=== PATIENT | female | born 1995 | race Caucasian/White ===

== ENCOUNTER 2016-08-06 17:48 | Emergency (ER) | payer OTHER ==
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
--- NOTE | 2016-08-06 18:22 | ED ORDER SUMMARY ---
..... Patient: BEAU MIMS OrderSheet [facility] VisitID: [id number] [place] [address] 21y, F Registration Date/Time: 08/06/2016 ORDER SHEET Weight: 116.5 kg (stated) Allergies: Zithromax GENERAL ORDERS: MEDICATION ORDERS: Tylenol PO 650 mg (NOW) (18:21 08/06/2016 EKoroleva P.A.-C) (18:29 LWhalmeng R.N.) Motrin PO 800 mg (NOW) (18:21 08/06/2016 EKoroleva P.A.-C) (18:29 LWhalmeng R.N.) IV FLUIDS: ORDER SHEET NOTES: [Electronically signed by Haydee Clark PBertA.-C (18:42 08/06/2016)] [Electronically signed by Tammy Marcus R.N. (19:25 08/07/2016)] [Electronically locked/signed by Tammy Marcus R.N. (19:25 08/07/2016)]
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
--- NOTE | 2016-08-06 18:22 | ED ORDER SUMMARY ---
..... Patient: BEAU MIMS OrderSheet [facility] VisitID: [id number] [place] [address] 21y, F Registration Date/Time: 08/06/2016 ORDER SHEET Weight: 116.5 kg (stated) Allergies: Zithromax GENERAL ORDERS: MEDICATION ORDERS: Tylenol PO 650 mg (NOW) (18:21 08/06/2016 EKoroleva P.A.-C) (18:29 LWhalmeng R.N.) Motrin PO 800 mg (NOW) (18:21 08/06/2016 EKoroleva P.A.-C) (18:29 LWhalmeng R.N.) IV FLUIDS: ORDER SHEET NOTES: [Electronically signed by Haydee Clark PBertA.-C (18:42 08/06/2016)] [Electronically signed by Tammy Marcus R.N. (19:25 08/07/2016)] [Electronically locked/signed by Tammy Marcus R.N. (19:25 08/07/2016)]
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
--- NOTE | 2016-08-07 19:25 | ED MED RECONCILIATION SUMMARY ---
Patient: BEAU MIMS Medication Reconciliation Report [facility] VisitID: [id number] [address] [place] [address] 21y, F Registration Date/Time: 08/06/2016 Weight: 116.5 kg Height/Length: 65 in. BMI: 42.8 ALLERGIES: Zithromax The patient's Home Medications are listed below: NONE. The source(s) of the original Home Medication information: Not obtained. The following Medications were given to the patient in the Emergency Department: Tylenol [PO] PO 650 mg, administered: 08/06/2016 6:29:00 PM Motrin [PO] PO 800 mg, administered: 08/06/2016 6:29:00 PM The following Medications were prescribed to the patient: Take OTC medications according to label instructions. Available over the counter. -- Haydee Clark, P.A.-C Acetaminophen (available over the counter): take according to label instructions. -- Haydee Clark, P.A.-C
--- NOTE | 2016-08-07 19:25 | ED MAR SUMMARY ---
..... Medication Administration Record [facility] [address] [place] [address] Patient: BEAU MIMS Visit ID: [id number] 21y, F Weight: 116.5 kg Height/Length: 65 in BMI: 42.8 ALLERGIES: Zithromax Given 18:08/06/2016 Tammy Marcus, R.N. Medication Administered: TYLENOL [PO] (ACETAMINOPHEN), Dose: 650 mg Tablets PO. Medication Ordered: Tylenol PO 650 mg (NOW). Given 18:08/06/2016 Tammy Marcus, R.N. Medication Administered: MOTRIN [PO], Dose: 800 mg Tablets PO. Medication Ordered: Motrin PO 800 mg (NOW).
--- NOTE | 2016-08-07 19:25 | ED MED RECONCILIATION SUMMARY ---
Patient: BEAU MIMS Medication Reconciliation Report [facility] VisitID: [id number] [address] [place] [address] 21y, F Registration Date/Time: 08/06/2016 Weight: 116.5 kg Height/Length: 65 in. BMI: 42.8 ALLERGIES: Zithromax The patient's Home Medications are listed below: NONE. The source(s) of the original Home Medication information: Not obtained. The following Medications were given to the patient in the Emergency Department: Tylenol [PO] PO 650 mg, administered: 08/06/2016 6:29:00 PM Motrin [PO] PO 800 mg, administered: 08/06/2016 6:29:00 PM The following Medications were prescribed to the patient: Take OTC medications according to label instructions. Available over the counter. -- Haydee Clark, P.A.-C Acetaminophen (available over the counter): take according to label instructions. -- Haydee Clark, P.A.-C
--- NOTE | 2016-08-07 19:25 | ED MAR SUMMARY ---
..... Medication Administration Record [facility] [address] [place] [address] Patient: BEAU MIMS Visit ID: [id number] 21y, F Weight: 116.5 kg Height/Length: 65 in BMI: 42.8 ALLERGIES: Zithromax Given 18:08/06/2016 Tammy Marcus, R.N. Medication Administered: TYLENOL [PO] (ACETAMINOPHEN), Dose: 650 mg Tablets PO. Medication Ordered: Tylenol PO 650 mg (NOW). Given 18:08/06/2016 Tammy Marcus, R.N. Medication Administered: MOTRIN [PO], Dose: 800 mg Tablets PO. Medication Ordered: Motrin PO 800 mg (NOW).
== END 2016-08-06 18:38 | disposition home or self-care (01) ==
LOC: ED SRH 17:48
DX: S06.0X0A Concussion without loss of consciousness, initial encounter (principal); S23.3XXA Sprain of ligaments of thoracic spine, initial encounter; S80.01XA Contusion of right knee, initial encounter; V43.52XA Car driver injured in collision with other type car in traffic accident, initial encounter; Y93.89 Activity, other specified; Y92.410 Unspecified street and highway as the place of occurrence of the external cause; Y99.9 Unspecified external cause status; I10 Essential (primary) hypertension; Z88.1 Allergy status to other antibiotic agents

== ENCOUNTER 2016-09-19 19:22 | Emergency (ER) | payer OTHER ==
--- NOTE | 2016-09-19 20:23 | DIAGNOSTIC IMAGING REPORT ---
PROCEDURE: XR LUMBAR SPINE 2 OR 3 VIEWS INDICATION: LOWER BACK PAIN TECHNIQUE: Three views. COMPARISON: None. FINDINGS: Mild this space narrowing and L5-S1. Osseous structures and disc spaces are otherwise normal. No evidence of an acute process or fracture. IMPRESSION: 1. Mild degenerative changes with mild disc space narrowing at L5 - S1. 2. Otherwise negative lumbar spine.
--- NOTE | 2016-09-19 20:49 | ED ORDER SUMMARY ---
..... Patient: BEAU MIMS OrderSheet [facility] VisitID: [id number] [address] [place] [address] 21y, F Registration Date/Time: 09/19/2016 ORDER SHEET Weight: 120.2 kg (stated) Allergies: Zithromax GENERAL ORDERS: Lumbar Spine 2 or 3V Urgent (19:39 09/19/2016 HBivens A.R.N.P.) (Ack 19:40 Brittniegshuimana) (20:56 MCampbell) UA-Culture if indicated Urgent (19:39 09/19/2016 HBivens A.R.N.P.) (Ack 19:40 Carissaimana) (19:56 DDavis R.N.) Urine Urgent (19:39 09/19/2016 HBivens A.R.N.P.) (Ack 19:40 Coco) (19:56 DDavis R.N.) MEDICATION ORDERS: Toradol IM 60 mg (NOW) (19:39 09/19/2016 HBivens A.R.N.P.) (Ack 19:43 DDavis R.N.) (20:02 DDavis R.N.) IV FLUIDS: ORDER SHEET NOTES: [Electronically signed by Gabriele Sepulveda R.N. (20:59 09/19/2016)] [Electronically signed by Lashell Brown.R.N.P. (21:41 09/19/2016)] [Electronically locked/signed by Gabriele Sepulveda R.N. (20:59 09/19/2016)]
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
--- NOTE | 2016-09-19 20:49 | ED ORDER SUMMARY ---
..... Patient: BEAU MIMS OrderSheet [facility] VisitID: [id number] [address] [place] [address] 21y, F Registration Date/Time: 09/19/2016 ORDER SHEET Weight: 120.2 kg (stated) Allergies: Zithromax GENERAL ORDERS: Lumbar Spine 2 or 3V Urgent (19:39 09/19/2016 HBivens A.R.N.P.) (Ack 19:40 Brittniegshuimana) (20:56 MCampbell) UA-Culture if indicated Urgent (19:39 09/19/2016 HBivens A.R.N.P.) (Ack 19:40 Carissaimana) (19:56 DDavis R.N.) Urine Urgent (19:39 09/19/2016 HBivens A.R.N.P.) (Ack 19:40 Coco) (19:56 DDavis R.N.) MEDICATION ORDERS: Toradol IM 60 mg (NOW) (19:39 09/19/2016 HBivens A.R.N.P.) (Ack 19:43 DDavis R.N.) (20:02 DDavis R.N.) IV FLUIDS: ORDER SHEET NOTES: [Electronically signed by Gabriele Sepulveda R.N. (20:59 09/19/2016)] [Electronically signed by Lashell Brown.R.N.P. (21:41 09/19/2016)] [Electronically locked/signed by Gabriele Sepulveda R.N. (20:59 09/19/2016)]
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
--- NOTE | 2016-09-19 21:42 | ED MAR SUMMARY ---
..... Medication Administration Record [facility] [address] [place] [address] Patient: BEAU MIMS Visit ID: [id number] 21y, F Weight: 120.2 kg Height/Length: 66 in BMI: 42.8 ALLERGIES: Zithromax Given 20:02 09/19/2016 Gabriele Sepulveda R.N. Medication Administered: TORADOL [IM] (KETOROLAC TROMETHAMINE), Dose: 60 mg IM. Medication Ordered: Toradol IM 60 mg (NOW).
--- NOTE | 2016-09-19 21:42 | ED DISCHARGE INSTRUCTIONS ---
Patient: BEAU MIMS General Instructions [facility] VisitID: [id number] [address] [place] [address] 21y, F Registration Date/Time: 09/19/2016 Acute nontraumatic lumbar back pain associated with degenerative disc disease of the lumbar spine. No radiculopathy or neurological deficit. INSTRUCTIONS Warnings: GENERAL WARNINGS: Return or contact your physician immediately if your condition worsens or changes unexpectedly, if not improving as expected, or if other problems arise. SPECIFICALLY, return if you develop incontinence of urine (loss of bladder control). Prescription Medications: Flexeril 10 mg: Take 1 orally every 8 hours as needed for muscle spasm. Dispense twenty (20). No refills. Substitution is permissible. Ultram 50 mg tablets: take 1-2 orally every 6 hours as needed for pain. Dispense twenty (20). No refills. Substitution is permissible. Follow-up: Follow up with your doctor in about one week as needed. Call for an appointment. Summary of care provided to patient. Understanding of the discharge instructions verbalized by patient. ADDITIONAL INFORMATION Back Pain [Acute Or Chronic] Back pain is usually caused by an injury to the muscles or ligaments of the spine. Sometimes the disks that separate each bone in the spine may bulge and cause pain by pressing on a nearby nerve. Back pain may also appear after a sudden twisting/bending force (such as in a car accident), after a simple awkward movement, or lifting something heavy with poor body positioning. In either case, muscle spasm is often present and adds to the pain. Acute back pain usually gets better in one to two weeks. Back pain related to disk disease, arthritis in the spinal joints or spinal stenosis (narrowing of the spinal canal) can become chronic and last for months or years. Unless you had a physical injury (for example, a car accident or fall) X-rays are usually not ordered for the initial evaluation of back pain. If pain continues and does not respond to medical treatment, x-rays and other tests may be performed at a later time. Home Care: You may need to stay in bed the first few days. But, as soon as possible, begin sitting or walking to avoid problems with prolonged bed rest (muscle weakness, worsening back stiffness and pain, blood clots in the legs). When in bed, try to find a position of comfort. A firm mattress is best. Try lying flat on your back with pillows under your knees. You can also try lying on your side with your knees bent up towards your chest and a pillow between your knees. Avoid prolonged sitting. This puts more stress on the lower back than standing or walking. During the first two days after injury, apply an ICE PACK to the painful area for 20 minutes every 2-4 hours. This will reduce swelling and pain. HEAT (hot shower, hot bath or heating pad) works well for muscle spasm. You can start with ice, then switch to heat after two days. Some patients feel best alternating ice and heat treatments. Use the one method that feels the best to you. You may use acetaminophen (Tylenol) or ibuprofen (Motrin, Advil) to control pain, unless another pain medicine was prescribed. [NOTE: If you have chronic liver or kidney disease or ever had a stomach ulcer or GI bleeding, talk with your doctor before using these medicines.] Be aware of safe lifting methods and do not lift anything over 15 pounds until all the pain is gone. Follow Up with your doctor or this facility if your symptoms do not start to improve after one week. Physical therapy may be needed. [NOTE: If X-rays were taken, they will be reviewed by a radiologist. You will be notified of any new findings that may affect your care.] Get Prompt Medical Attention if any of the following occur: Pain becomes worse or spreads to your legs Weakness or numbness in one or both legs Loss of bowel or bladder control Numbness in the groin or genital area Cyclobenzaprine Hydrochloride Oral tablet What is this medicine? CYCLOBENZAPRINE (gerhard lucianoen) is a muscle relaxer. It is used to treat muscle pain, spasms, and stiffness. How should I use this medicine? Take this medicine by mouth with a glass of water. Follow the directions on the prescription label. If this medicine upsets your stomach, take it with food or milk. Take your medicine at regular intervals. Do not take it more often than directed. Talk to your nissan sales consultant regarding the use of this medicine in children. Special care may be needed. What side effects may I notice from receiving this medicine? Side effects that you should report to your doctor or health behavioral health care coordinator as soon as possible: allergic reactions like skin rash, itching or hives, swelling of the face, lips, or tongue chest pain fast heartbeat hallucinations seizures vomiting Side effects that usually do not require medical attention (report to your doctor or health behavioral health care coordinator if they continue or are bothersome): headache What may interact with this medicine? Do not take this medicine with any of the following medications: cisapride droperidol flecainide grepafloxacin halofantrine levomethadyl MAOIs like Carbex, Eldepryl, Marplan, Nardil, and Parnate nilotinib pimozide probucol sertindole This medicine may also interact with the following medications: abarelix alcohol contrast dyes dolasetron guanethidine medicines for cancer medicines for depression, anxiety, or psychotic disturbances medicines to treat an irregular heartbeat medicines used for sleep or numbness during surgery or procedure methadone octreotide ondansetron palonosetron phenothiazines like chlorpromazine, mesoridazine, prochlorperazine, thioridazine some medicines for infection like alfuzosin, chloroquine, clarithromycin, levofloxacin, mefloquine, pentamidine, troleandomycin tramadol vardenafil What if I miss a dose? If you miss a dose, take it as soon as you can. If it is almost time for your next dose, take only that dose. Do not take double or extra doses. Where should I keep my medicine? Keep out of the reach of children. Store at room temperature between 15 and 30 degrees C (59 and 86 degrees F). Keep container tightly closed. Throw away any unused medicine after the expiration date. What should I tell my health care provider before I take this medicine? They need to know if you have any of these conditions: heart disease, irregular heartbeat, or previous heart attack liver disease thyroid problem an unusual or allergic reaction to cyclobenzaprine, tricyclic antidepressants, lactose, other medicines, foods, dyes, or preservatives or trying to get breast-feeding What should I watch for while using this medicine? Check with your doctor or health behavioral health care coordinator if your condition does not improve within 1 to 3 weeks. You may get drowsy or dizzy when you first start taking the medicine or change doses. Do not drive, use machinery, or do anything that may be dangerous until you know how the medicine affects you. Stand or sit up slowly. Your mouth may get dry. Drinking water, chewing sugarless gum, or sucking on hard candy may help. Tramadol Hydrochloride Oral tablet What is this medicine? TRAMADOL (TRA ma dole) is a pain reliever. It is used to treat moderate to severe pain in adults. How should I use this medicine? Take this medicine by mouth with a full glass of water. Follow the directions on the prescription label. If the medicine upsets your stomach, take it with food or milk. Do not take more medicine than you are told to take. Talk to your nissan sales consultant regarding the use of this medicine in children. Special care may be needed. What side effects may I notice from receiving this medicine? Side effects that you should report to your doctor or health behavioral health care coordinator as soon as possible: allergic reactions like skin rash, itching or hives, swelling of the face, lips, or tongue breathing difficulties, wheezing confusion itching light headedness or fainting spells redness, blistering, peeling or loosening of the skin, including inside the mouth seizures Side effects that usually do not require medical attention (report to your doctor or health behavioral health care coordinator if they continue or are bothersome): constipation dizziness drowsiness headache nausea, vomiting What may interact with this medicine? Do not take this medicine with any of the following medications: MAOIs like Carbex, Eldepryl, Marplan, Nardil, and Parnate This medicine may also interact with the following medications: alcohol or medicines that contain alcohol antihistamines benzodiazepines bupropion carbamazepine or oxcarbazepine clozapine cyclobenzaprine digoxin furazolidone linezolid medicines for depression, anxiety, or psychotic disturbances medicines for migraine headache like almotriptan, eletriptan, frovatriptan, naratriptan, rizatriptan, sumatriptan, zolmitriptan medicines for pain like pentazocine, buprenorphine, butorphanol, meperidine, nalbuphine, and propoxyphene medicines for sleep muscle relaxants naltrexone phenobarbital phenothiazines like perphenazine, thioridazine, chlorpromazine, mesoridazine, fluphenazine, prochlorperazine, promazine, and trifluoperazine procarbazine warfarin What if I miss a dose? If you miss a dose, take it as soon as you can. If it is almost time for your next dose, take only that dose. Do not take double or extra doses. Where should I keep my medicine? Keep out of the reach of children. Store at room temperature between 15 and 30 degrees C (59 and 86 degrees F). Keep container tightly closed. Throw away any unused medicine after the expiration date. What should I tell my health care provider before I take this medicine? They need to know if you have any of these conditions: brain tumor depression drug abuse or addiction head injury if you frequently drink alcohol containing drinks kidney disease or trouble passing urine liver disease lung disease, asthma, or breathing problems seizures or epilepsy suicidal thoughts, plans, or attempt; a previous suicide attempt by you or a family member an unusual or allergic reaction to tramadol, codeine, other medicines, foods, dyes, or preservatives or trying to get breast-feeding What should I watch for while using this medicine? Tell your doctor or health behavioral health care coordinator if your pain does not go away, if it gets worse, or if you have new or a different type of pain. You may develop tolerance to the medicine. Tolerance means that you will need a higher dose of the medicine for pain relief. Tolerance is normal and is expected if you take this medicine for a long time. Do not suddenly stop taking your medicine because you may develop a severe reaction. Your body becomes used to the medicine. This does NOT mean you are addicted. Addiction is a behavior related to getting and using a drug for a non-medical reason. If you have pain, you have a medical reason to take pain medicine. Your doctor will tell you how much medicine to take. If your doctor wants you to stop the medicine, the dose will be slowly lowered over time to avoid any side effects. You may get drowsy or dizzy. Do not drive, use machinery, or do anything that needs mental alertness until you know how this medicine affects you. Do not stand or sit up quickly, especially if you are an older patient. This reduces the risk of dizzy or fainting spells. Alcohol can increase or decrease the effects of this medicine. Avoid alcoholic drinks. You may have constipation. Try to have a bowel movement at least every 2 to 3 days. If you do not have a bowel movement for 3 days, call your doctor or health behavioral health care coordinator. Your mouth may get dry. Chewing sugarless gum or sucking hard candy, and drinking plenty of water may help. Contact your doctor if the problem does not go away or is severe. You have been given the following additional information: Back Pain (Acute Or Chronic) Cyclobenzaprine Hydrochloride Oral tablet Tramadol Hydrochloride Oral tablet (Electronically signed by Lashell Brown A.R.N.P. 09/19/2016 21:41)
--- NOTE | 2016-09-19 21:42 | ED MAR SUMMARY ---
..... Medication Administration Record [facility] [address] [place] [address] Patient: BEAU MIMS Visit ID: [id number] 21y, F Weight: 120.2 kg Height/Length: 66 in BMI: 42.8 ALLERGIES: Zithromax Given 20:02 09/19/2016 Gabriele Sepulveda R.N. Medication Administered: TORADOL [IM] (KETOROLAC TROMETHAMINE), Dose: 60 mg IM. Medication Ordered: Toradol IM 60 mg (NOW).
--- NOTE | 2016-09-19 21:42 | ED MED RECONCILIATION SUMMARY ---
Patient: BEAU MIMS Medication Reconciliation Report [facility] VisitID: [id number] [address] [place] [address] 21y, F Registration Date/Time: 09/19/2016 Weight: 120.2 kg Height/Length: 66 in. BMI: 42.8 ALLERGIES: Zithromax The patient's Home Medications are listed below: NONE. The source(s) of the original Home Medication information: Not obtained. The following Medications were given to the patient in the Emergency Department: Toradol [IM] IM 60 mg, administered: 09/19/2016 8:02:00 PM The following Medications were prescribed to the patient: Flexeril 10 mg: Take 1 orally every 8 hours as needed for muscle spasm. Dispense twenty (20). No refills. Substitution is permissible. -- Lashell Brown, A.R.N.P. Ultram 50 mg tablets: take 1-2 orally every 6 hours as needed for pain. Dispense twenty (20). No refills. Substitution is permissible. -- Lashell Brown, A.R.N.P.
--- NOTE | 2016-09-19 21:42 | ED MED RECONCILIATION SUMMARY ---
Patient: BEAU MIMS Medication Reconciliation Report [facility] VisitID: [id number] [address] [place] [address] 21y, F Registration Date/Time: 09/19/2016 Weight: 120.2 kg Height/Length: 66 in. BMI: 42.8 ALLERGIES: Zithromax The patient's Home Medications are listed below: NONE. The source(s) of the original Home Medication information: Not obtained. The following Medications were given to the patient in the Emergency Department: Toradol [IM] IM 60 mg, administered: 09/19/2016 8:02:00 PM The following Medications were prescribed to the patient: Flexeril 10 mg: Take 1 orally every 8 hours as needed for muscle spasm. Dispense twenty (20). No refills. Substitution is permissible. -- Lashell Brown, A.R.N.P. Ultram 50 mg tablets: take 1-2 orally every 6 hours as needed for pain. Dispense twenty (20). No refills. Substitution is permissible. -- Lashell Brown, A.R.N.P.
== END 2016-09-19 21:00 | disposition home or self-care (01) ==
LOC: ED SRH 19:22
DX: M51.36 Other intervertebral disc degeneration, lumbar region (principal); I10 Essential (primary) hypertension; Z88.1 Allergy status to other antibiotic agents
CPT/HCPCS: 90004; 90469; 93070